=== PATIENT | male | born 1960 | race Caucasian/White ===

== ENCOUNTER 2024-09-23 16:56 | Emergency (ER) | payer OTHER, SELFPAY ==
[2024-09-23 17:12] VITALS: BP 118/80
[2024-09-23 17:28] LABS: % Basophils 0.4 % (0-2); % Eosinophils 1.5 % (0-6); % Immature Granulocytes 0.1 % (0-0.5); % Lymphocytes 19.9 % (20.5-51.1); % Monocytes 7.8 % (1.7-9.3); % Neutrophils 70.3 % (42.2-75.2); Absolute Eosinophils 0.1 10^3/uL (0-0.7); Absolute Lymphocytes 1.5 10^3/uL (1.2-3.4); Absolute Monocytes 0.6 10^3/uL (0.1-0.6); Absolute Neutrophils 5.3 10^3/uL (1.4-6.5); Hematocrit 37.7 % (39.0-52.0); Hemoglobin 13.4 g/dL (13.0-18.0); Mean Corp Hgb Conc. 35.5 g/dL (33.0-37.0); Mean Corpuscular Hgb 30.2 pg (27.0-31.0); Mean Corpuscular Volume 84.9 fL (80.0-94.0); Mean Platelet Volume 8.7 fL (7.4-10.4); Nucleated Red Blood Cells % 0 % (-); Platelet Count 245 10^3/uL (130-400); Red Blood Cell Count 4.44 10^6/uL (4.70-6.10); Red Cell Dist. Width 13.4 % (11.5-14.5); White Blood Cell Count 7.6 10^3/uL (4.8-10.8)
[2024-09-23 17:49] LABS: ALT (SGPT) 27 U/L (0-50); AST (SGOT) 25 U/L (17-59); Albumin 3.9 g/dl (3.5-5.0); Alkaline Phosphatase 26 U/L (38-126); Blood Urea Nitrogen 24 mg/dl (9-20); Calcium 9.5 mg/dl (8.4-10.2); Carbon Dioxide 28 mmol/L (22-30); Chloride 105 mmol/L (98-107); Glucose 107 mg/dl (70-99); Potassium 3.9 mmol/L (3.5-5.1); Sodium 140 mmol/L (135-145); Total Bilirubin 0.8 mg/dl (0.2-1.3); Total Protein 6.6 g/dl (6.3-8.2); eGFR > 60.00
[2024-09-23 17:54] LABS: Troponin I < 0.012 ng/ml
[2024-09-23 21:17] VITALS: BMI 32.1
[2024-09-23 21:22] VITALS: BP 129/87
--- NOTE | 2024-09-23 21:40 | ED.GENMED ---
History of Present Illness
General
Chief Complaint: Chest Pain
Time Seen by Provider: 09/23/24 21:40
History of Present Illness
History of Present Illness:
TIME OF INITIAL ENCOUNTER: 9:40 PM
HPI: Patient presents with intermittent epigastric/chest pain for the past 10 days or so. He also indicates he has been in A-fib since May. He states he is on anticoagulation twice daily. He states he has a sensation of acid that goes up into
his throat. He is not currently taking a PPI and has only been taking Tums. He has no exertional symptoms. He did not break out into a sweat. There is no shortness of breath.
EXAM:
GENERAL: Well appearing in no distress
HEENT: Moist oral mucosa
CARDIOVASCULAR: No murmurs, normal heart rate, slightly irregular rhythm, No chest wall tenderness
PULMONARY: No respiratory distress, breath sounds are clear and equal
ABDOMEN: Soft with no peritoneal signs, no tenderness
NEUROLOGIC: Excellent strength all extremities, no coordination deficits
PSYCHIATRIC: Appropriate mental status, normal insight and judgement
EXTREMITIES: Nontender, no edema, moves all extremities equally
SKIN: No rash, no lesions
NUMBER AND COMPLEXITY OF PROBLEMS ADDRESSED AT THE ENCOUNTER
� Chronic conditions affecting care: High blood pressure, A-fib
� Acute Exacerbation and/or Progression of Chronic Illness: This is an acute problem
� Differential Diagnosis includes: GERD, gastritis, ACS less likely, biliary colic, doubt PE as vital signs are not consistent with PE and he does not have shortness of breath
AMOUNT AND/OR COMPLEXITY OF DATA TO BE REVIEWED AND ANALYZED
� I performed an independent evaluation of and my interpretation is:
EKG: A-fib 78, nonspecific ST abnormality, EKG #2 shows increased artifact but no change from earlier today
CT:
X-rays: Chest x-ray shows no acute abnormality
Laboratory Studies: CBC unremarkable, chemistries unremarkable however the BUN is slightly elevated at 24, troponin less than 0.012
Other:
� Review of other/old records: No old records available for review
� Clinical information was obtained by an independent historian: I spoke to at bedside
� Prescriptions/Medications Considered but not given:
� Further testing considered but not performed:
RISK OF COMPLICATIONS AND/OR MORBIDITY OR MORTALITY OF PATIENT MANAGEMENT
� Social determinants of health affecting care: Lives at home, works as a dump truck driver
� Discussion with other providers:
� Escalation of care including admission/observation vs risk of discharge considered: EKG showed rate controlled A-fib with no ST abnormality. Initial troponin negative. Etiology may be GI related. Will try Pepcid and Maalox.
He has not been on a PPI.
ANY OTHER UPDATES:
2 troponins have been negative. EKG is unremarkable other than known A-fib.
11:45 PM: On reassessment patient has no pain after Pepcid and Maalox were given. Strongly suspect GI etiology.
Phy Exam
Physical Exam
Physical Exam:
See HPI
Scores
Heart Score for Chest Pain Patients
STEMI patient?: Not applicable
Course
Orders/Labs/Results
Orders:
Orders
09/23/24 16:59
Electrocardiogram (*1) Urgent
Reason for Study: Chest Pain
EKG- Treatment ONCE
09/23/24 17:21
Complete Blood Count/With Diff Urgent
Comprehensive Metabolic Panel Urgent
Troponin I Urgent
09/23/24 20:15
EKG- Treatment ONCE
09/23/24 20:45
CR Chest - 2 Views Urgent
Comment:
Reason For Exam: chest pain
09/23/24 21:15
ECG [Electrocardiogram (*1)] Urgent
Reason for Study: Chest Pain
09/23/24 21:27
Troponin I Urgent
09/23/24 21:46
Famotidine [Pepcid] 40 mg PO NOW STA
Mag Hydrox/Al Hydrox/Simeth [Maalox] 30 ml PO NOW STA
Abnormal Lab Results
09/23/24
17:21
RBC 4.44 L 10^6/uL
(4.70-6.10)
Hct 37.7 L %
(39.0-52.0)
Lymphocytes % 19.9 L %
(20.5-51.1)
BUN 24 H mg/dl
(9-20)
Glucose 107 H mg/dl
(70-99)
Alkaline Phosphatase 26 L U/L
(38-126)
09/23/24 17:21
09/23/24 17:21
Vital Signs
Initial and Last Documented VS:
Initial Vital Signs
Temp Pulse Resp BP Pulse Ox
36.6 C 88 16 118/80 99
09/23/24 17:12 09/23/24 17:12 09/23/24 17:12 09/23/24 17:12 09/23/24 17:12
Last Documented Vital Signs
Temp Pulse Resp BP Pulse Ox
36.6 C 78 18 109/89 99
09/23/24 17:12 09/23/24 23:00 09/23/24 21:22 09/23/24 23:00 09/23/24 22:45
*Critical Care Note
Total Time (30-74mins, 75-104mins- exclusive of procedures): Not Applicable
ED Attending Note
-
Portions of this chart may have been created with voice recognition software.� Occasional wrong word or��sound alike� substitutions may have occurred due to the inherent limitations of voice recognition software.
Discharge Plan
Departure
Referrals:
GEREMIAS LEMUS MD [Family Provider] -
Interventions
Interventions:
*Risk Screen - Suicide Last Done: 09/23/24 17:12
*General Assessment Last Done: 09/23/24 17:12
*Neglect/Abuse Screening Last Done: 09/23/24 17:12
*ED- Fall Risk Assessment Last Done: 09/23/24 21:17
*ED COVID-19 Vaccine History Last Done: 09/23/24 21:17
ED- Cardiac Assessment Last Done: 09/23/24 21:33
Discharge Date and Time
Print Language: [id number]
[2024-09-23 21:59] LABS: Troponin I < 0.012 ng/ml
[2024-09-23 22:00] VITALS: BP 119/77
[2024-09-23] MEDS: PEPCID 40 MG PO (22:31)
[2024-09-23] MEDS: MAALOX 30 ML PO (22:32)
[2024-09-23 23:00] VITALS: BP 109/89
== END 2024-09-24 00:04 | disposition home or self-care (01) ==
LOC: EMR 16:56
PROVIDERS: Emergency Medicine; EMERGENCY PHYSICIAN Emergency Medicine; FAMILY PHYSICIAN Family Medicine
DX: R07.89 Other chest pain (principal); R10.13 Epigastric pain; I48.91 Unspecified atrial fibrillation; I10 Essential (primary) hypertension; Z79.01 Long term (current) use of anticoagulants
CPT/HCPCS: 99285; 71046; 80053; 84484; 85025; 93005